=== PATIENT | female | born 1985 | race Caucasian/White ===

== ENCOUNTER 2021-01-19 21:39 | Emergency (ER) | payer MEDICAID ==
[~2021-01-19] VITALS: Ht 157.5 cm; Wt 104.3 kg
[2021-01-19 22:29] VITALS: BP 147/82
--- NOTE | 2021-01-19 22:33 | NUR ---
TO LOBBY FOLLOWING TRIAGE
[2021-01-19] MEDS ORDERED: AMOX400P4 PO (23:34)
[2021-01-19 23:46] VITALS: BP 147/82
== END 2021-01-19 23:46 | disposition home or self-care (01) ==
LOC: MED 21:39
DX: J02.9 Acute pharyngitis, unspecified (principal); M54.2 Cervicalgia; Z79.899 Other long term (current) drug therapy
CPT/HCPCS: 99283